=== PATIENT | female | born 1950 | race Caucasian/White ===

== ENCOUNTER 2017-07-16 22:03 | Emergency (ER) | payer MEDICARE, MEDICAID ==
[~2017-07-16] VITALS: Ht 154.9 cm; Wt 63.1 kg
[~2017-07-16 22:03] MED LIST: CLON2TAB2 PO; CYCL-259 PO; ENAL10TA PO; HYDR-3240 PO; LEVO750T26 PO; MECL12.5 PO; MECL25TA2 PO; PRAV10TA2 PO; SULF-169 PO
[2017-07-16 23:03] LABS: HEMATOCRIT 40.8 % (34.6-47.8); WHITE BLOOD COUNT 8.1 x10^3/uL (3.4-10)
[2017-07-16 23:13] LABS: BLOOD UREA NITROGEN 13 mg/dL (7-18)
[2017-07-16 23:40] VITALS: BP 128/62
== END 2017-07-16 23:42 | disposition home or self-care (01) ==
LOC: ED 23:15
DX: R73.9 Hyperglycemia, unspecified (principal); R51 Headache; R20.2 Paresthesia of skin; E78.5 Hyperlipidemia, unspecified; K21.9 Gastro-esophageal reflux disease without esophagitis; F32.9 Major depressive disorder, single episode, unspecified
CPT/HCPCS: 36415; 80048; 83735; 85025; 93005; 99285

== ENCOUNTER 2020-12-31 21:45 | Emergency (ER) | payer MEDICARE, MEDICAID ==
[~2020-12-31] VITALS: Ht 152.4 cm; Wt 66.9 kg
[~2020-12-31 21:45] MED LIST changes: -CLON2TAB2 PO; +CLON2TAB9 PO; -CYCL-259 PO; +CYCL10TA2 PO; -ENAL10TA PO; +ENAL10TA9 PO; +HYDR-2214 PO; -HYDR-3240 PO
--- NOTE | 2020-12-31 22:15 | NUR ---
PT PRESENTS WITH GRANDDAUGHTER AT BEDSIDE, PT HAS BEEN HAVING HEADACHE AND DIZZINESS FOR 8 HOURS. PT IN GOWN, HOOKED TO ALL MONITORS AND IS RESTING COMFORTABLY ON GURNEY.
[2020-12-31] MEDS ORDERED: FLUT50BL PO (22:23)
[2020-12-31] MEDS ORDERED: SPIR25TA5 PO (22:23)
[2020-12-31] MEDS ORDERED: LISI-167 PO (22:23)
[2020-12-31] MEDS ORDERED: ROPI0.254 PO (22:23)
[2020-12-31] MEDS ORDERED: ATOR40TA78 PO (22:23)
[2020-12-31] MEDS ORDERED: CITA20TA6 PO (22:23)
[2020-12-31] MEDS ORDERED: PANT40TA6 PO (22:23)
[2020-12-31] MEDS ORDERED: ALBU18HF PO (22:23)
[2020-12-31 23:00] LABS: BASOPHILS % (AUTO) 1 % (0-1); EOSINOPHILS % (AUTO) 0 % (1-7); LYMPHOCYTES % (AUTO) 8 % (22-44); MEAN CORPUSCULAR HEMOGLOBIN 31.1 pg (27.0-34.8); MEAN CORPUSCULAR HGB CONC 33.8 g/dL (32.4-35.8); MEAN PLATELET VOLUME 7.2 fL (7.4-10.4); MONOCYTES % (AUTO) 4 % (2-9); NEUTROPHILS % (AUTO) 87 % (42-75); PLATELET COUNT 205 x10^3/uL (130-400); RED BLOOD COUNT 4.06 x10^6/uL (3.82-5.3); RED CELL DISTRIBUTION WIDTH 13.8 % (9.6-15.2)
[2020-12-31 23:01] LABS: MD NO
[2020-12-31 23:06] LABS: ALANINE AMINOTRANSFERASE 32 U/L (12-78); ALBUMIN 3.8 g/dL (3.4-5.0); ANION GAP 8 mmol/L (5-15); CALCIUM 8.7 mg/dL (8.5-10.1); CHLORIDE 103 mmol/L (98-107); CREATININE 0.83 mg/dL (0.55-1.02)
[2020-12-31 23:10] LABS: ALKALINE PHOSPHATASE 84 U/L (45-117); BILIRUBIN,TOTAL 0.5 mg/dL (0.2-1.0); TOTAL PROTEIN 7.2 g/dL (6.4-8.2); TROPONIN I < 0.015 ng/mL (0.000-0.045)
--- NOTE | 2020-12-31 23:17 | NUR ---
PT STRAIGHT CATH PER ERP ORDER, PT TOLERATED WELL, PT RESTING ON GURNEY, DENIES NEEDS AT THIS TIME, UA SAMPLE WALKED TO LAB
[2020-12-31 23:23] LABS: MICROSCOPIC AUTO
--- NOTE | 2021-01-01 00:03 | NUR ---
PT RESTING ON GURMONY, DENIES NEEDS AT THIS TIME
[2021-01-01 01:34] VITALS: BP 120/75
--- NOTE | 2021-01-01 01:36 | NUR ---
Patient/Caregiver given discharge instructions and they have confirmed that they understand the instructions. Patient ambulatory with steady gait.
== END 2021-01-01 01:47 | disposition home or self-care (01) ==
LOC: ED 22:15
DX: R42 Dizziness and giddiness (principal); I95.9 Hypotension, unspecified; R00.1 Bradycardia, unspecified; R07.9 Chest pain, unspecified; I10 Essential (primary) hypertension; E78.5 Hyperlipidemia, unspecified; K21.9 Gastro-esophageal reflux disease without esophagitis; G43.909 Migraine, unspecified, not intractable, without status migrainosus; Z87.891 Personal history of nicotine dependence
CPT/HCPCS: 36415; 71045; 80053; 81001; 83880; 84484; 85025; 87086; 93005; 99285